=== PATIENT | female | born 1945 | race Caucasian/White ===

== ENCOUNTER → 2018-12-30 | Outpatient (CLI) | payer MEDICARE ==
[~2018-12-30] MED LIST: ASP81CT PO; BP MED; ESCI20TA2 PO; ESCT10T; ESCT10T PO; FRSM40T PO; HYDR1TAB PO; LISI1TAB6 PO; LVT.025T; LVT.05T PO; OMG1KC; OXYC-12 PO; PIOG1TAB PO; PIOG1TAB2 PO; PRD20T PO
[2018-12-30 10:36] LABS: SODIUM 138 MMOL/L (135-145)
[2018-12-30 10:37] LABS: BUN/CREATININE RATIO 26; CALCIUM 9.5 MG/DL (8.5-10.1); CARBON DIOXIDE 27 MMOL/L (21-32); CHLORIDE 97 MMOL/L (98-107); CREATININE SERUM 0.68 MG/DL (0.60-1.30); GFR ESTIMATED > 60; GLUCOSE 172 MG/DL (70-105); POTASSIUM 4.3 MMOL/L (3.6-5.0)
== END ==
LOC: RAD FS 09:55
PROVIDERS: ATTEND Family Medicine
DX: E87.1 Hypo-osmolality and hyponatremia (principal)
CPT/HCPCS: 36415; 80048

== ENCOUNTER → 2019-02-10 | Outpatient (CLI) | payer MEDICARE ==
--- NOTE | 2019-02-10 10:58 | Diagnostic Imaging Report ---
EXAMINATION: Left shoulder radiographs, 3 views. COMPARISON: None. HISTORY: 73-year-old female, left shoulder pain. FINDINGS: There are areas of calcification adjacent to the superior humeral head, compatible with calcific tendinitis/bursitis. The humeral head is not obviously anteriorly or posteriorly dislocated. The scapular Y-view is suboptimally positioned. The acromioclavicular joint is normally aligned. There are very mild acromioclavicular degenerative changes. The glenohumeral joint space appears well-preserved. There is no identified acute fracture. There is no radiographically apparent bone lesion. IMPRESSION: 1. Findings compatible with calcific tendinitis/bursitis. 2. Very mild acromioclavicular degenerative changes without large undersurface osteophyte. 3. Unremarkable appearance of the glenohumeral joint. Dictated by: Dictated on workstation # [id number]
--- NOTE | 2019-02-10 11:14 | Diagnostic Imaging Report ---
EXAMINATION: Cervical spine. INDICATION: Neck pain. TECHNIQUE: AP, lateral and odontoid views were obtained. COMPARISON: There are no prior studies available for comparison. FINDINGS: The lateral view shows the vertebral body heights and alignment to be generally within normal limits. The intervertebral spaces are fairly well-maintained. There is no fracture or acute bony abnormality evident. There is no sign of retropharyngeal edema. The lung apices are clear. IMPRESSION: 1. There is no evidence for an acute bony abnormality. 2. If there is clinical concern regarding spinal stenosis or nerve root encroachment, then MRI would be recommended for further evaluation. Dictated by: Dictated on workstation # [id number]
== END ==
LOC: RAD FS 09:01
PROVIDERS: ATTEND Family Medicine
DX: M19.012 Primary osteoarthritis, left shoulder (principal); M54.2 Cervicalgia
CPT/HCPCS: 72040; 73030

== ENCOUNTER → 2020-04-04 | Outpatient (CLI) | payer MEDICARE ==
--- NOTE | 2020-04-04 16:47 | Diagnostic Imaging Report ---
EXAM: CT right foot and ankle without contrast. DATE: April 04, 2020. INDICATION: 74-year-old female, status post Achilles tendon repair with pain at the post operative site. COMPARISON: None. TECHNIQUE: Axial CT images through the level of the right foot and ankle were obtained without contrast. Coronal and sagittal reformats were obtained and provided. All CT scans use one or more of the following dose optimizing techniques: automated exposure control, MA and/or KvP adjustment based on a patient size and exam type, or iterative reconstruction. FINDINGS: There is thickening and soft tissue attenuation in the region of the expected location of the Achilles tendon. There are anchors in the calcaneus. The Achilles tendon is not well evaluated on CT. There is some slight cortical irregularity of the posterior aspect of the calcaneus in the region of the Achilles tendon repair without acute or aggressive appearing bone erosion or bone destruction. There is no periosteal reaction. There is limited assessment for a fluid collection on noncontrast CT imaging. There is subcutaneous edema superficial to the Achilles tendon. There is no acute fracture. The joint spaces are well preserved. There is a normal variant os peroneum and a normal variant os navicularis. IMPRESSION: 1. Thickening of the region of the Achilles tendon which potentially may relate to a normal post operative appearance. The Achilles tendon is not well directly evaluated on CT. 2. Slight cortical irregularity of the posterior calcaneus in the region of the Achilles tendon reconstruction without acute or aggressive appearing bone erosion or bone destruction. 3. Nonspecific subcutaneous edema superficial to the Achilles tendon. 4. Additional CT assessment at the level of the right foot and ankle is unremarkable. Dictated by: Dictated on workstation # [id number]
== END ==
LOC: RAD FS 14:43
PROVIDERS: ATTEND Orthopaedic Surgery
DX: M85.661 Other cyst of bone, right lower leg (principal); M76.61 Achilles tendinitis, right leg; Z98.890 Other specified postprocedural states
CPT/HCPCS: 73700

== ENCOUNTER 2020-12-21 04:19 | Emergency (ER) | payer MEDICARE ==
[~2020-12-21] VITALS: Ht 165.1 cm; Wt 94.3 kg
[2020-12-21] MEDS ORDERED: LACTATED RINGERS 1,000 ML IV ONE (04:30)
[2020-12-21 04:46] LABS: BASOPHILS % (AUTO) 0 % (0-10); EOSINOPHILS % (AUTO) 0 % (0-10); HEMATOCRIT 45 % (35-52); HEMOGLOBIN 15.4 g/dL (11.5-16.0); LYMPHOCYTES % (AUTO) 6 % (12-44); MEAN CORPUSCULAR HEMOGLOBIN 31 pg (25-34); MEAN CORPUSCULAR HGB CONC 34 g/dL (32-36); MEAN CORPUSCULAR VOLUME 92 fL (80-99); MEAN PLATELET VOLUME 10.5 fL (9.0-12.2); MONOCYTES # (AUTO) 0.8 10^3/uL (0.0-1.0); MONOCYTES % (AUTO) 5 % (0-12); NEUTROPHILS % (AUTO) 88 % (42-75); PLATELET COUNT 236 10^3/uL (130-400); WHITE BLOOD COUNT 15.8 10^3/uL (4.3-11.0)
[2020-12-21 05:02] LABS: ALBUMIN 4.7 GM/DL (3.2-4.5); CHLORIDE 90 MMOL/L (98-107); POTASSIUM 4.1 MMOL/L (3.6-5.0); SODIUM 137 MMOL/L (135-145)
[2020-12-21 05:04] LABS: CALCIUM 10.9 MG/DL (8.5-10.1)
[2020-12-21 05:05] LABS: BAND NEUTROPHILS 14 %; GLUCOSE 259 MG/DL (70-105); LYMPHOCYTES % (MANUAL) 7 %; MONOCYTES % (MANUAL) 4 %; NEUTROPHILS % (MANUAL) 75 %; TOTAL PROTEIN 8.3 GM/DL (6.4-8.2)
[2020-12-21 05:06] LABS: CARBON DIOXIDE 27 MMOL/L (21-32); RBC MORPH NORMAL
[2020-12-21 05:07] LABS: BILIRUBIN,TOTAL 0.8 MG/DL (0.1-1.0)
[2020-12-21 05:08] LABS: ALKALINE PHOSPHATASE 71 U/L (40-136); CREATININE SERUM 1.14 MG/DL (0.60-1.30); GFR ESTIMATED 46
[2020-12-21 05:09] LABS: BUN/CREATININE RATIO 29
[2020-12-21 05:11] LABS: ALANINE AMINOTRANSFERASE 21 U/L (0-55); MAGNESIUM 1.8 MG/DL (1.6-2.4)
--- NOTE | 2020-12-21 05:13 | ED Syncope ---
General Chief Complaint: Abdominal/GI Problems Stated Complaint: WEAK, POSS FOOD POISONING Nursing Triage Note: STATES BEGAN TO HAVE SEVERE ABDOMINAL CRAMPING AROUND 1999 LAST EVENING. PAIN THEN NAUSEA AND VOMITING AND CYCLES OF THIS "CLOSE TO 10 TIMES". STATES THAT HE HEARD HER UP AT 330 AND HEARD A CRASH FOUND HER ON THE FLOOR ON HER BACK. STATES IT TOOK HER AROUND 30 SECONDS TO WAKE AND SHE WAS VERY WEAK WHEN TRYING TO GET UP. (LAST BLAIR MED STUDENT) History of Present Illness Date Seen by Provider: December 21, 2020 Time Seen by Provider: 04:45 Initial Comments 75 y/o female with PMHx of HTN and DM presents to ED with for syncopal episode occurring ~2hrs ago. Patient states she was eating leftovers for dinner yesterday at 1800, noticing midline abdominal cramping with upward radiation at around 2000. Patient later felt nausea and vomited which alleviated her symptoms, though she cycled through these symptoms repeatedly until 0100 this AM when she was able to sleep. At around 0300 patient woke up to abdominal pain again and passed out, was nearby and found her passed out on her back. Patient was unconscious for ~30 seconds and was mumbling on waking up though no obvious signs of confusion. notes that patient had been alternating feeling hot and cold over the night and patient had spent the previous day mowing their lawn. Patient denies headache, dizziness, CP, palpitations, SOB, wheezing, constipation, diarrhea and any hx of similar symptoms. Denies any current pain or known injury. (LAST BLAIR MED STUDENT) Allergies and Home Medications Allergies Coded Allergies: morphine (Unverified Adverse Reaction, Severe, VOMITING, 02/17/11) Codeine (Unverified Adverse Reaction, Mild, ITCH, 02/17/11) Home Medications Cephalexin 500 Mg Tablet, 500 MG PO TID Prescribed by: ANTHONY VARELA on 12/21/20 06 Escitalopram Oxalate 10 Mg Tablet, 1 EACH PO DAILY, (Reported) Hctz/Lisinopril 1 Each Tablet, 1 EACH PO DAILY, (Reported) Levothyroxine Sodium 50 Mcg Tablet, 1 EACH PO DAILY, (Reported) Ondansetron 4 Mg Tab.rapdis, 4 MG SL Q4H PRN for NAUSEA/VOMITING Prescribed by: ANTHONY VARELA on 5/13/21 0638 Prednisone 20 Mg Tab, 40 MG PO DAILY Prescribed by: TAZ QUIÑONEZ on 07/09/13 1130 Patient Home Medication List Home Medication List Reviewed: Yes (ANTHONY PUENTES MD) Review of Systems Constitutional: chills (alternating with feeling warm); No dizziness EENTM: No double vision, No mouth pain Respiratory: No short of breath, No wheezing Cardiovascular: No chest pain, No palpitations; syncope Gastrointestinal: abdominal pain (umbilical, radiating superiorly); No constipation, No diarrhea; nausea, vomiting Genitourinary: No dysuria, No incontinence Musculoskeletal: No back pain, No joint pain Skin: No change in color, No rash Psychiatric/Neurological: Denies Anxiety, Denies Depressed (LAST BLAIR) Past Zyksidn-[id number]-Irapxr Hx Patient Social History Alcohol Use: Denies Use Recent Infectious Disease Expo: No Recent Hopitalizations: No (LAST BLAIR) Immunizations Up To Date Date of Pneumonia Vaccine: May 11, 2012 Date of Influenza Vaccine: Apr 11, 2013 (LAST BLAIR) Past Medical History Surgeries: Yes (COCHLEAR IMPLANT BILATERALLY) Hysterectomy, Oophorectomy Respiratory: No Cardiac: Yes Neurological: No : No Reproductive Disorders: No [employer] History: Hysterectomy Sexually Transmitted Disease: No HIV/AIDS: No Genitourinary: No Gastrointestinal: No Musculoskeletal: No Endocrine: Yes (trulicity, metformin) Hypothyroidsim, Diabetes, Non-Insulin dep Are Your Blood Sugars Over 250: No HEENT: No (COCHLEAR IMPLANT BILATERALLY) Cancer: No Psychosocial: Yes Depression Integumentary: Yes (hives and/or allergic reaction) Blood Disorders: No Adverse Reaction/Blood Tranf: No (LAST BLAIR) Family Medical History Heart Disease, Hypertension (LAST BLAIR) Physical Exam Vital Signs Vital Signs - First Documented 12/21/20 12/21/20 04:25 06:43 Temp 35.8 Pulse 78 Resp 18 B/P (MAP) 148/74 (98) Pulse Ox 98 O2 Delivery Room Air (ANTHONY PUENTES MD) Vital Signs Capillary Refill : Less Than 3 Seconds (LAST BLAIR) Height, Weight, BMI Height: '" Weight: 210lbs. oz. [id number]; 34.00 BMI Method:Stated General Appearance: No Apparent Distress, WD/WN HEENT: PERRL/EOMI; No Scleral Icterus (L), No Scleral Icterus (R); Other (dry mucous membranes) Neck: Normal Inspection, Non Tender Cardiovascular: Regular Rate, Rhythm, No Murmur, Normal Peripheral Pulses Respiratory: Chest Non Tender, Lungs Clear, Normal Breath Sounds Gastrointestinal: Non Tender, Soft Back: No CVA Tenderness, No Vertebral Tenderness Extremities: Normal Capillary Refill, Normal Inspection, Non Tender Neurologic/Psychiatric: Alert, Normal Mood/Affect; No Disoriented Cranial Nerves: Normal Hearing, Normal Speech, PERRL Motor/Sensory: No Motor Deficit, No Sensory Deficit Skin: Normal Color, Warm/Dry Lymphatic: No Adenopathy (LAST BLAIR MED STUDENT) Progress/Results/Core Measures Results/Orders Lab Results Laboratory Tests Test 12/21/20 04:40 12/21/20 05:55 Range/Units White Blood Count 15.8 H 4.3-11.0 10^3/uL Red Blood Count 4.91 3.80-5.11 10^6/uL Hemoglobin 15.4 11.5-16.0 g/dL Hematocrit 45 35-52 % Mean Corpuscular Volume 92 80-99 fL Mean Corpuscular Hemoglobin 31 25-34 pg Mean Corpuscular Hemoglobin Concent 34 32-36 g/dL Red Cell Distribution Width 12.2 10.0-14.5 % Platelet Count 236 130-400 10^3/uL Mean Platelet Volume 10.5 9.0-12.2 fL Immature Granulocyte % (Auto) 1 % Neutrophils (%) (Auto) 88 H 42-75 % Lymphocytes (%) (Auto) 6 L 12-44 % Monocytes (%) (Auto) 5 0-12 % Eosinophils (%) (Auto) 0 0-10 % Basophils (%) (Auto) 0 0-10 % Neutrophils # (Auto) 14.0 H 1.8-7.8 10^3/uL Lymphocytes # (Auto) 1.0 1.0-4.0 10^3/uL Monocytes # (Auto) 0.8 0.0-1.0 10^3/uL Eosinophils # (Auto) 0.0 0.0-0.3 10^3/uL Basophils # (Auto) 0.0 0.0-0.1 10^3/uL Immature Granulocyte # (Auto) 0.1 0.0-0.1 10^3/uL Neutrophils % (Manual) 75 % Lymphocytes % (Manual) 7 % Monocytes % (Manual) 4 % Band Neutrophils 14 % Blood Morphology Comment NORMAL Sodium Level 137 135-145 MMOL/L Potassium Level 4.1 3.6-5.0 MMOL/L Chloride Level 90 L 98-107 MMOL/L Carbon Dioxide Level 27 21-32 MMOL/L Anion Gap 20 H 5-14 MMOL/L Blood Urea Nitrogen 33 H 7-18 MG/DL Creatinine 1.14 0.60-1.30 MG/DL Estimat Glomerular Filtration Rate 46 BUN/Creatinine Ratio 29 Glucose Level 259 H 70-105 MG/DL Glucometer 221 H 70-110 MG/DL Calcium Level 10.9 H 8.5-10.1 MG/DL Corrected Calcium 8.5-10.1 MG/DL Magnesium Level 1.8 1.6-2.4 MG/DL Total Bilirubin 0.8 0.1-1.0 MG/DL Aspartate Amino Transf (AST/SGOT) 22 5-34 U/L Alanine Aminotransferase (ALT/SGPT) 21 0-55 U/L Alkaline Phosphatase 71 40-136 U/L Troponin I < 0.028 <0.028 NG/ML Total Protein 8.3 H 6.4-8.2 GM/DL Albumin 4.7 H 3.2-4.5 GM/DL Thyroid Stimulating Hormone (TSH) 0.90 0.35-4.94 UIU/ML Free Thyroxine 1.00 0.70-1.48 NG/DL Urine Color YELLOW Urine Clarity CLOUDY Urine pH 5.5 5-9 Urine Specific [place] 1.025 H 1.016-1.022 Urine Protein NEGATIVE NEGATIVE Urine Glucose (UA) TRACE H NEGATIVE Urine Ketones NEGATIVE NEGATIVE Urine Nitrite NEGATIVE NEGATIVE Urine Bilirubin NEGATIVE NEGATIVE Urine Urobilinogen 0.2 < = 1.0 MG/DL Urine Leukocyte Esterase 2+ H NEGATIVE Urine RBC (Auto) NEGATIVE NEGATIVE Urine RBC NONE /HPF Urine WBC 25-50 H /HPF Urine Squamous Epithelial Cells 25-50 H /HPF Urine Crystals NONE /LPF Urine Bacteria LARGE H /HPF Urine Casts PRESENT /LPF Urine Hyaline Casts 2-5 H /LPF Urine Mucus NEGATIVE /LPF Urine Culture Indicated YES (ANTHONY PUENTES MD) My Orders Orders - ANTHONY PUENTES MD Cbc With Automated Diff (12/21/20 04:25) Comprehensive Metabolic Panel (12/21/20 04:25) Magnesium (12/21/20 04:25) Ua Culture If Indicated (12/21/20 04:25) Ed Iv/Invasive Line Start (12/21/20 04:25) Lactated Ringers (Lr 1000 Ml Iv Solution (12/21/20 04:30) Manual Differential (12/21/20 04:40) Ekg Tracing (12/21/20 05:05) Monitor-Rhythm Ecg Trace Only (12/21/20 05:05) Thyroid Stimulating Hormone (12/21/20 05:07) Free T4 (Free Thyroxine) (12/21/20 05:07) Troponin I (12/21/20 05:11) Urine Culture (12/21/20 05:55) Ceftriaxone For Iv Use (Rocephin For I (12/21/20 06:30) (ANTHONY PUENTES MD) Medications Given in ED (ANTHONY PUENTES MD) Vital Signs/I&O 12/21/20 12/21/20 04:25 06:43 Temp 35.8 Pulse 78 72 Resp 18 16 B/P (MAP) 148/74 (98) 148/72 (98) Pulse Ox 98 O2 Delivery Room Air Room Air (ANTHONY PUENTES MD) Blood Pressure Mean: 98 FSBG Bedside Testing Finger Stick Blood Glucose: 221 (LAST BLAIR MED STUDENT) Progress Progress Note : Progress Note Patient was seen and evaluated. EKG and labs were assessed. She was found to have leukocytosis and urinary tract infection. She was treated with Rocephin. She also appeared a bit dry with casts in her urine and elevated BUN. A liter of IV fluid was infused. She felt much better after IV fluids and was able to ambulate around the room without symptoms. She reported no head or neck injury. She required no treatment for nausea and vomiting but Zofran was prescribed as a precaution. Antibiotics were prescribed for urinary tract infection. (ANTHONY PUENTES MD) Initial ECG Impression Date: December 21, 2020 Initial ECG Impression Time: 05:09 Initial ECG Rate: 68 Initial ECG Rhythm: Normal Sinus Initial ECG Intervals: Normal Initial ECG Impression: Normal Comment Normal sinus rhythm with no ST elevation or depression. No abnormal intervals or axis deviation. (ANTHONY PUENTES MD) Departure Impression Primary Impression: Syncope Qualified Codes: R55 - Syncope and collapse Additional Impressions: Urinary tract infection Qualified Codes: N39.0 - Urinary tract infection, site not specified Nausea and vomiting Qualified Codes: R11.2 - Nausea with vomiting, unspecified Hypovolemia Disposition: HOME, SELF-CARE Condition: Improved Departure-Patient Inst. Decision time for Depature: 06:36 (ANTHONY PUENTES MD) Referrals: JOSE NATION MD (PCP/Family) Primary Care Physician Patient Instructions: Urinary Tract Infection, Adult ED Add. Discharge Instructions: Drink plenty of water to stay well-hydrated. Complete your antibiotics as prescribed. Follow-up with your primary care provider early next week to review urine culture results. Use the Zofran (ondansetron) as prescribed for nausea and vomiting. Call with questions or concerns. Return to the ER if you have worsening symptoms. All discharge instructions reviewed with patient and/or family. Voiced understanding. Scripts Ondansetron (Ondansetron Odt) 4 Mg Tab.rapdis 4 MG SL Q4H PRN for NAUSEA/VOMITING, #10 TAB Prov: ANTHONY PUENTES MD 12/21/20 Cephalexin (Cephalexin) 500 Mg Tablet 500 MG PO TID, #20 TAB Prov: ANTHONY PUENTES MD 12/21/20 Copy Copies To 1: JOSE NATION MD, MATTHEW MED STUDENT December 21, 2020 05:13 ANTHONY PUENTES MD December 21, 2020 06:38
[2020-12-21 05:59] LABS: BILIRUBIN,URINE NEGATIVE (NEGATIVE); CLARITY,URINE CLOUDY; COLOR,URINE YELLOW; GLUCOSE, URINE (UA) TRACE (NEGATIVE); KETONES,URINE NEGATIVE (NEGATIVE); LEUKOCYTE ESTERASE ,URINE 2+ (NEGATIVE); NITRITE,URINE NEGATIVE (NEGATIVE); PH,URINE 5.5 (5-9); PROTEIN,URINE NEGATIVE (NEGATIVE)
[2020-12-21 06:09] LABS: BACTERIA,URINE LARGE /HPF; SQUAMOUS EPITHELIAL CELL,UR 25-50 /HPF; WBC,URINE 25-50 /HPF
[2020-12-21] MEDS ORDERED: cefTRIAXone FOR IV USE 1,000 MG in WATER (STERILE) FOR INJECTION 10 ML IV ONE (06:30)
[2020-12-21] MEDS ORDERED: ONDA4TAB11 SL (06:38)
[2020-12-21] MEDS ORDERED: CEPH500T PO (06:38)
[2020-12-21 06:43] VITALS: BP 148/72
== END 2020-12-21 06:43 | disposition home or self-care (01) ==
LOC: EDUNIT# 04:19 → ER 04:22
DX: R55 Syncope and collapse (principal); N39.0 Urinary tract infection, site not specified; R11.2 Nausea with vomiting, unspecified; E86.1 Hypovolemia; F32.9 Major depressive disorder, single episode, unspecified; E03.9 Hypothyroidism, unspecified; E11.9 Type 2 diabetes mellitus without complications; Z88.5 Allergy status to narcotic agent; Z79.890 Hormone replacement therapy; Z79.52 Long term (current) use of systemic steroids; Z79.899 Other long term (current) drug therapy
CPT/HCPCS: 36415; 80053; 81000; 82947; 83735; 84439; 84443; 84484; 85007; 85027; 87088; 93005; 93041